=== PATIENT | male | born 1955 | race Caucasian/White ===

== ENCOUNTER 2017-12-25 05:45 | Inpatient (IN) ==
[2017-12-25] MEDS ORDERED: VANCOMYCIN INJ 1,000 MG in SODIUM CHLORIDE 0.9% 250 ML IV ONE (06:00)
[2017-12-25] MEDS ORDERED: ceFAZolin 1,000 MG in SYRINGE 1 EACH IV ONE (06:00)
[2017-12-25] MEDS ORDERED: DIAZEPAM 5 MG TABLET PO ONE (06:00)
[2017-12-25] MEDS ORDERED: ceFAZolin 1,000 MG VIAL ONE (06:00)
[2017-12-25] MEDS ORDERED: VANCOMYCIN 1,000 MG VIAL ONE (06:00)
[2017-12-25] MEDS ORDERED: FAMOTIDINE 20 MG TABLET PO ONE (06:00)
[2017-12-25] MEDS ORDERED: FAMOTIDINE 20 MG TABLET ONE (06:01)
[2017-12-25] MEDS ORDERED: DIAZEPAM 5 MG TABLET ONE (06:01)
[2017-12-25] MEDS ORDERED: BUPIVACAINE SPINAL 0.75% 2 ML AMP SPINAL ONE (06:07)
[2017-12-25] MEDS: LACTATED RINGERS 1,000 ML IV SCH (06:37)
[2017-12-25] MEDS ORDERED: NALOXONE 0.4 MG/ML VIAL IV PRN (07:16)
[2017-12-25] MEDS ORDERED: MORPHINE 4 MG/1 ML VIAL IV PRN (07:16)
[2017-12-25] MEDS ORDERED: diphenhydrAMINE CAP 25 MG CAPSULE PO PRN (07:16)
[2017-12-25] MEDS ORDERED: ONDANSETRON 4 MG/2 ML VIAL IV PRN ×2 (07:16→08:52)
[2017-12-25] MEDS ORDERED: BISACODYL 10 MG SUPP RECTAL PRN (07:16)
[2017-12-25] MEDS ORDERED: LACTULOSE 20 GM/30 ML UDCUP PO PRN (07:16)
[2017-12-25] MEDS ORDERED: MAGNESIUM HYDROXIDE SUSP 30 ML UDCUP PO PRN (07:16)
[2017-12-25] MEDS ORDERED: TEMAZEPAM 7.5 MG CAPSULE PO PRN (07:16)
[2017-12-25] MEDS ORDERED: PROMETHAZINE 25 MG/1 ML VIAL IM PRN (07:16)
[2017-12-25] MEDS ORDERED: TRANEXAMIC ACID 1,000 MG/10 ML VIAL ONE (07:50)
[2017-12-25] MEDS ORDERED: ROPIVACAINE 0.5% 30 ML VIAL ONE ×2 (08:42→09:31)
[2017-12-25] MEDS ORDERED: LIDOCAINE 2% 20 ML VIAL ONE (08:42)
[2017-12-25] MEDS ORDERED: PROPOFOL 200 MG/20 ML VIAL IV ONE (08:45)
[2017-12-25] MEDS ORDERED: LABETALOL 100 MG/20 ML VIAL IV ONE (08:46)
[2017-12-25] MEDS ORDERED: DESFLURANE 1 UNIT/15 MINUTE INH ONE (08:46)
[2017-12-25] MEDS ORDERED: GLYCOPYRROLATE 0.4 MG/2 ML VIAL ONE (08:46)
[2017-12-25] MEDS ORDERED: fentaNYL 100 MCG/2 ML VIAL ONE (08:46)
[2017-12-25] MEDS ORDERED: MIDAZOLAM 2 MG/2 ML VIAL ONE (08:46)
[2017-12-25] MEDS ORDERED: hydrALAZINE 20 MG/1 ML VIAL ONE (08:46)
[2017-12-25] MEDS ORDERED: ONDANSETRON 4 MG/2 ML VIAL ONE (08:47)
[2017-12-25] MEDS ORDERED: MORPHINE 10 MG/1 ML VIAL ONE (08:47)
[2017-12-25] MEDS ORDERED: NEOSTIGMINE 10 MG/10 ML VIAL ONE (08:47)
[2017-12-25] MEDS ORDERED: ACETAMINOPHEN 1,000 MG/100 ML VIAL IV ONE (08:47)
[2017-12-25] MEDS ORDERED: ROCURONIUM 100 MG/10 ML VIAL IV ONE (08:47)
[2017-12-25] MEDS: MORPHINE 10 MG/1 ML VIAL IV PRN ×5 (08:50→09:20)
[2017-12-25] MEDS ORDERED: ABATACEPT 125 MG SQ SCH (09:00)
[2017-12-25] MEDS ORDERED: GABAPENTIN 400 MG CAPSULE ONE (09:16)
[2017-12-25] MEDS ORDERED: KETOROLAC 30 MG/1 ML VIAL ONE (09:19)
[2017-12-25] MEDS ORDERED: KETOROLAC 30 MG/1 ML VIAL IV ONE (09:24)
[2017-12-25] MEDS ORDERED: GABAPENTIN 400 MG CAPSULE PO ONE (09:25)
[2017-12-25] MEDS: MORPHINE PCA 30 MG/30 ML SYRINGE IV SCH (09:54)
[2017-12-25] MEDS: ASPIRIN CHEW 81 MG TABLET PO SCH (11:33)
[2017-12-25] MEDS: PANTOPRAZOLE 40 MG TABLET PO SCH (11:33)
[2017-12-25] MEDS: DOCUSATE SODIUM 100 MG CAPSULE PO SCH ×2 (11:33→20:29)
[2017-12-25] MEDS: GABAPENTIN 600 MG TABLET PO SCH ×3 (11:33→20:30)
[2017-12-25] MEDS: CYCLOBENZAPRINE 10 MG TABLET PO SCH ×3 (11:34→20:30)
[2017-12-25] MEDS: PARoxetine 20 MG TABLET PO SCH (11:34)
[2017-12-25] MEDS: ROSUVASTATIN 20 MG TABLET PO SCH (11:34)
[2017-12-25] MEDS: ALLOPURINOL 300 MG TABLET PO SCH (11:34)
[2017-12-25] MEDS: ceFAZolin 2,000 MG in PREMIX 1 EACH IV SCH ×2 (16:46→22:00)
[2017-12-25] MEDS: FONDAPARINUX 2.5 MG/0.5 ML SYRINGE SUBCUT SCH (20:29)
[2017-12-25 22:41] LABS: Apearance,Urine CLEAR (Clear); Bilirubin,Urine Negative (Negative); Blood, Urine Negative (Negative); Glucose,Urine (UA) Negative (Negative); Ketones,Urine Negative (Negative); Mucus,Urine Occasional /LPF (Occasional); Nitrite,Urine Negative (Negative); Protein,Urine Negative; Urine Color Yellow (Yellow); Urine Specific Gravity 1.026 (1.001-1.035); Urine Urobilinogen < 2.0 EU/DL (0.2-1.0); WBC,Urine 1 /HPF (0-6)
[2017-12-26] MEDS: MORPHINE PCA 30 MG/30 ML SYRINGE IV SCH ×2 (05:44→13:48)
[2017-12-26 06:00] LABS: Basophils % 0.2 % (0.0-0.8); Eosinophils # 0.2 10*3/uL (0.0-0.87); Eosinophils % 2.4 % (0.00-10.9); Hematocrit 34.7 VOL% (42.0-52.0); Hemoglobin 11.8 GM/DL (14.0-18.0); Immature Granulocytes % 0.4 %; Immature Granulocytes Absolute 0.04 #; Lymphocytes # 1.9 10*3/uL (1.4-4.0); Lymphocytes % 18.2 % (21.2-54.2); Mean Corpuscular Hemoglobin 29 PG (27-34); Mean Corpuscular Volume 85.9 FL (87-102); Mean Platelet Volume 9.7 FL (9.6-12.0); Monocytes # 1.2 10*3/uL (0.11-0.8); Monocytes % 11.4 % (1.7-12.7); Neutrophils # 6.9 10*3/uL (1.4-7.4); Neutrophils % 67.4 % (38.7-73.9); Platelet Count 181 T/CUMM (130-400); Red Blood Count 4.04 MC/CUMM (3.8-5.5); Red Cell Distribution Width 14.5 % (9.3-17.3); White Blood Count 10.2 T/CUMM (4-12)
[2017-12-26 06:19] LABS: Calcium 7.8 MG/DL (8.5-10.1); Osmolality,Calculated 274.8 MOS/KG (273-304); Potassium 3.9 MMOL/L (3.5-5.1)
[2017-12-26] MEDS: LACTATED RINGERS 1,000 ML IV SCH ×2 (06:47→09:07)
[2017-12-26] MEDS: DOCUSATE SODIUM 100 MG CAPSULE PO SCH ×2 (08:48→21:48)
[2017-12-26] MEDS: ROSUVASTATIN 20 MG TABLET PO SCH (08:48)
[2017-12-26] MEDS: ASPIRIN CHEW 81 MG TABLET PO SCH (08:48)
[2017-12-26] MEDS: GABAPENTIN 600 MG TABLET PO SCH ×3 (08:49→21:48)
[2017-12-26] MEDS: CYCLOBENZAPRINE 10 MG TABLET PO SCH ×3 (08:49→21:48)
[2017-12-26] MEDS: PANTOPRAZOLE 40 MG TABLET PO SCH (08:49)
[2017-12-26] MEDS: PARoxetine 20 MG TABLET PO SCH (08:49)
[2017-12-26] MEDS: ALLOPURINOL 300 MG TABLET PO SCH (08:50)
[2017-12-26] MEDS ORDERED: ACETAMINOPHEN 325 MG TABLET PO PRN (17:54)
[2017-12-26] MEDS: FONDAPARINUX 2.5 MG/0.5 ML SYRINGE SUBCUT SCH (21:48)
[2017-12-27] MEDS: LACTATED RINGERS 1,000 ML IV SCH (06:30)
[2017-12-27] MEDS: MORPHINE PCA 30 MG/30 ML SYRINGE IV SCH (07:30)
[2017-12-27] MEDS: DOCUSATE SODIUM 100 MG CAPSULE PO SCH (10:04)
[2017-12-27] MEDS: CYCLOBENZAPRINE 10 MG TABLET PO SCH ×2 (10:04→14:30)
[2017-12-27] MEDS: ASPIRIN CHEW 81 MG TABLET PO SCH (10:04)
[2017-12-27] MEDS: GABAPENTIN 600 MG TABLET PO SCH ×2 (10:04→14:32)
[2017-12-27] MEDS: ROSUVASTATIN 20 MG TABLET PO SCH (10:04)
[2017-12-27] MEDS: PANTOPRAZOLE 40 MG TABLET PO SCH (10:05)
[2017-12-27] MEDS: ALLOPURINOL 300 MG TABLET PO SCH (10:05)
[2017-12-27] MEDS: PARoxetine 20 MG TABLET PO SCH (10:05)
[2017-12-27 11:11] VITALS: BP 164/91
== END 2017-12-27 14:42 | disposition home health service (06) | DRG 470 ==
LOC: N.OR 05:45 → N.SDSINP 06:13 → N.3E 10:24
PROVIDERS: ADMIT Orthopaedic Surgery; ATTEND Orthopaedic Surgery

== ENCOUNTER 2020-05-19 11:19 | Observation (INO) ==
[2020-05-19] MEDS ORDERED: HYDROmorphone 2 MG/1 ML VIAL IV STA (12:10)
[2020-05-19] MEDS ORDERED: ONDANSETRON 4 MG/2 ML VIAL IV STA (12:10)
[2020-05-19 12:44] LABS: Basophils % 0.3 % (0.0-0.8); Eosinophils # 0.3 10*3/uL (0.0-0.87); Eosinophils % 3.6 % (0.00-10.9); Hematocrit 37.5 VOL% (42.0-52.0); Hemoglobin 12.5 GM/DL (14.0-18.0); Immature Granulocytes % 0.6 %; Immature Granulocytes Absolute 0.05 #; Lymphocytes # 1.8 10*3/uL (1.4-4.0); Lymphocytes % 23.4 % (21.2-54.2); Mean Corpuscular HGB Conc 33.3 GM/DL (32-36); Mean Corpuscular Volume 85.4 FL (87-102); Mean Platelet Volume 9.3 FL (9.6-12.0); Monocytes % 10.5 % (1.7-12.7); Neutrophils % 61.6 % (38.7-73.9); Platelet Count 230 T/CUMM (130-400); Red Blood Count 4.39 MC/CUMM (3.8-5.5); Red Cell Distribution Width 14.4 % (9.3-17.3); White Blood Count 7.7 T/CUMM (4-12)
[2020-05-19 13:15] LABS: Albumin 3.1 G/DL (3.4-5.0); Bilirubin,Total 0.8 MG/DL (0.2-1.0); Calcium 8.9 MG/DL (8.5-10.1); Osmolality,Calculated 272.1 MOS/KG (273-304); Total Protein 7.2 G/DL (6.4-8.3)
[2020-05-19 13:43] LABS: Sedimentation Rate-Westergren 41 MM/HR (0-20)
[2020-05-19] MEDS ORDERED: KETOROLAC 30 MG/1 ML VIAL IV STA (15:40)
[2020-05-19] MEDS ORDERED: KETOROLAC 30 MG/1 ML VIAL ONE (15:48)
[2020-05-19] MEDS ORDERED: ACETAMINOPHEN 325 MG TABLET PO PRN (16:18)
[2020-05-19] MEDS ORDERED: ONDANSETRON 4 MG/2 ML VIAL IV PRN (16:18)
[2020-05-19] MEDS: DOCUSATE SODIUM 100 MG CAPSULE PO SCH (20:45)
[2020-05-19] MEDS: KETOROLAC 15 MG/1 ML VIAL IV SCH (21:26)
[2020-05-20] MEDS: KETOROLAC 15 MG/1 ML VIAL IV SCH ×2 (03:09→10:00)
[2020-05-20 06:35] LABS: Basophils % 0.3 % (0.0-0.8); Eosinophils # 0.3 10*3/uL (0.0-0.87); Eosinophils % 4.7 % (0.00-10.9); Hematocrit 37.8 VOL% (42.0-52.0); Hemoglobin 12.5 GM/DL (14.0-18.0); Immature Granulocytes % 0.4 %; Immature Granulocytes Absolute 0.03 #; Lymphocytes # 1.5 10*3/uL (1.4-4.0); Lymphocytes % 21.3 % (21.2-54.2); Mean Corpuscular HGB Conc 33.1 GM/DL (32-36); Mean Corpuscular Volume 85.7 FL (87-102); Mean Platelet Volume 9.1 FL (9.6-12.0); Monocytes % 12.4 % (1.7-12.7); Neutrophils % 60.9 % (38.7-73.9); Platelet Count 217 T/CUMM (130-400); Red Blood Count 4.41 MC/CUMM (3.8-5.5)
[2020-05-20 06:48] LABS: Calcium 9.2 MG/DL (8.5-10.1)
[2020-05-20] MEDS ORDERED: fentaNYL 50 MCG/HR PATCH TRANSDERM SCH (09:00)
[2020-05-20] MEDS ORDERED: PANTOPRAZOLE 40 MG TABLET PO SCH (09:00)
[2020-05-20] MEDS: DOCUSATE SODIUM 100 MG CAPSULE PO SCH ×2 (10:01→10:06)
[2020-05-20 11:33] VITALS: BP 122/59
== END 2020-05-20 14:20 | disposition home or self-care (01) ==
LOC: N.ED 11:19 → N.EDINP 11:19 → N.3E 16:15
PROVIDERS: ADMIT Family Medicine; ATTEND Family Medicine

== ENCOUNTER 2020-05-28 05:46 | Inpatient (IN) ==
[2020-05-26 15:54] LABS: Bilirubin,Urine Negative (Negative); Blood, Urine Negative (Negative); Glucose,Urine (UA) Negative (Negative); Hyaline Casts,Urine 34 /LPF (0-3); Ketones,Urine Negative (Negative); Mucus,Urine Many /LPF (Occasional); Nitrite,Urine Negative (Negative); Protein,Urine 30 MG/DL; RBC,Urine 1 /HPF (0-4); Urine Appearance CLEAR (Clear); Urine Color Amber (Yellow); Urine Specific Gravity 1.025 (1.001-1.035); WBC,Urine 1 /HPF (0-6)
[2020-05-26 16:03] LABS: PT Patient Result 10.3 SECS (9.8-11.9); Partial Thromboplastin Time 28.8 SECS (23.9-33.8)
[2020-05-28] MEDS ORDERED: propofoL 200 MG/20 ML VIAL IV ONE ×2 (06:22→07:43)
[2020-05-28] MEDS ORDERED: MIDAZOLAM 2 MG/2 ML VIAL ONE (06:22)
[2020-05-28] MEDS ORDERED: fentaNYL 100 MCG/2 ML VIAL ONE ×2 (06:22→07:47)
[2020-05-28] MEDS ORDERED: LIDOCAINE 2% 5 ML VIAL ONE (06:22)
[2020-05-28] MEDS ORDERED: VANCOMYCIN 1,000 MG VIAL ONE (06:29)
[2020-05-28] MEDS ORDERED: ceFAZolin 1,000 MG VIAL ONE (06:29)
[2020-05-28] MEDS ORDERED: ceFAZolin 1,000 MG in SYRINGE 1 EACH IV ONE (06:36)
[2020-05-28] MEDS ORDERED: VANCOMYCIN INJ 1,000 MG in SODIUM CHLORIDE 0.9% 250 ML IV ONE (06:36)
[2020-05-28] MEDS: LACTATED RINGERS 1,000 ML IV SCH ×2 (06:46→08:30)
[2020-05-28] MEDS ORDERED: BUPIVACAINE MPF 0.25% 30 ML VIAL ONE (06:50)
[2020-05-28] MEDS ORDERED: ROCURONIUM 50 MG/5 ML VIAL IV ONE (07:00)
[2020-05-28] MEDS ORDERED: SUCCINYLCHOLINE 200 MG/10 ML VIAL ONE (07:00)
[2020-05-28] MEDS ORDERED: LACTULOSE 20 GM/30 ML UDCUP PO PRN (07:18)
[2020-05-28] MEDS ORDERED: ONDANSETRON 4 MG/2 ML VIAL IV PRN ×2 (07:18→09:11)
[2020-05-28] MEDS ORDERED: diphenhydrAMINE CAP 25 MG CAPSULE PO PRN (07:18)
[2020-05-28] MEDS ORDERED: BISACODYL 10 MG SUPP RECTAL PRN (07:18)
[2020-05-28] MEDS ORDERED: PROMETHAZINE 25 MG/1 ML VIAL IM PRN (07:18)
[2020-05-28] MEDS ORDERED: TEMAZEPAM 7.5 MG CAPSULE PO PRN (07:18)
[2020-05-28] MEDS ORDERED: SODIUM CHLORIDE 0.9% 100 ML IV ONE (07:47)
[2020-05-28] MEDS ORDERED: TRANEXAMIC ACID 1,000 MG/10 ML VIAL ONE (07:47)
[2020-05-28] MEDS ORDERED: LABETALOL 20 MG/4 ML SYRINGE IV ONE (07:59)
[2020-05-28] MEDS ORDERED: ACETAMINOPHEN 1,000 MG/100 ML VIAL IV ONE (08:20)
[2020-05-28] MEDS ORDERED: hydrALAZINE 20 MG/1 ML VIAL ONE (08:22)
[2020-05-28] MEDS ORDERED: NEOSTIGMINE 10 MG/10 ML VIAL ONE (08:26)
[2020-05-28] MEDS ORDERED: GLYCOPYRROLATE 0.4 MG/2 ML VIAL ONE (08:26)
[2020-05-28] MEDS ORDERED: LACTATED RINGERS 1,000 ML IV ONE (08:26)
[2020-05-28] MEDS ORDERED: ONDANSETRON 4 MG/2 ML VIAL ONE (08:26)
[2020-05-28] MEDS ORDERED: SEVOFLURANE 1 UNIT/15 MINUTE INH ONE (08:53)
[2020-05-28] MEDS: HYDROmorphone 2 MG/1 ML VIAL IV PRN ×4 (09:10→09:25)
[2020-05-28] MEDS ORDERED: MEPERIDINE 25 MG/1 ML VIAL IV PRN (09:11)
[2020-05-28 09:12] LABS: Bilirubin,Urine Negative (Negative); Blood, Urine Negative (Negative); Glucose,Urine (UA) Negative (Negative); Hyaline Casts,Urine 1 /LPF (0-3); Ketones,Urine Negative (Negative); Mucus,Urine Few /LPF (Occasional); Nitrite,Urine Negative (Negative); Protein,Urine Negative; Urine Appearance CLEAR (Clear); Urine Color Yellow (Yellow); Urine Specific Gravity 1.016 (1.001-1.035); Urine Urobilinogen < 2.0 EU/DL (0.2-1.0); WBC,Urine <1 /HPF (0-6)
[2020-05-28] MEDS: MORPHINE 4 MG/1 ML VIAL IV PRN ×4 (12:13→22:09)
[2020-05-28] MEDS: ASPIRIN CHEW 81 MG TABLET PO SCH (13:01)
[2020-05-28] MEDS: PARoxetine 20 MG TABLET PO SCH (13:02)
[2020-05-28] MEDS: allopurinoL 300 MG TABLET PO SCH (13:02)
[2020-05-28] MEDS: PANTOPRAZOLE 40 MG TABLET PO SCH (13:09)
[2020-05-28] MEDS: amLODIPine 5 MG TABLET PO SCH (13:10)
[2020-05-28] MEDS: CYCLOBENZAPRINE 10 MG TABLET PO SCH (13:10)
[2020-05-28] MEDS: ROSUVASTATIN 20 MG TABLET PO SCH (13:10)
[2020-05-28] MEDS: OLMESARTAN 20 MG TABLET PO SCH (13:10)
[2020-05-28] MEDS: ceFAZolin 2,000 MG in PREMIX 1 EACH IV SCH ×2 (15:18→22:13)
[2020-05-28] MEDS: HYDROXYCHLOROQUINE 200 MG TABLET PO SCH (21:06)
[2020-05-28] MEDS: DOCUSATE SODIUM 100 MG CAPSULE PO SCH (21:06)
[2020-05-28] MEDS: FONDAPARINUX 2.5 MG/0.5 ML SYRINGE SUBCUT SCH (21:07)
[2020-05-29] MEDS: MORPHINE 4 MG/1 ML VIAL IV PRN ×2 (02:10→06:03)
[2020-05-29 06:42] LABS: Basophils % 0.4 % (0.0-0.8); Eosinophils # 0.1 10*3/uL (0.0-0.87); Eosinophils % 0.5 % (0.00-10.9); Hematocrit 36.1 VOL% (42.0-52.0); Immature Granulocytes % 0.4 %; Immature Granulocytes Absolute 0.04 #; Lymphocytes # 1.4 10*3/uL (1.4-4.0); Mean Corpuscular HGB Conc 33.2 GM/DL (32-36); Mean Corpuscular Volume 84.5 FL (87-102); Mean Platelet Volume 9.7 FL (9.6-12.0); Monocytes % 11.7 % (1.7-12.7); Platelet Count 294 T/CUMM (130-400); Red Blood Count 4.27 MC/CUMM (3.8-5.5); Red Cell Distribution Width 14.6 % (9.3-17.3); White Blood Count 11.1 T/CUMM (4-12)
[2020-05-29 06:46] LABS: Calcium 8.8 MG/DL (8.5-10.1); Osmolality,Calculated 277.7 MOS/KG (273-304)
[2020-05-29] MEDS: PANTOPRAZOLE 40 MG TABLET PO SCH (08:34)
[2020-05-29] MEDS: ASPIRIN CHEW 81 MG TABLET PO SCH (08:35)
[2020-05-29] MEDS: CYCLOBENZAPRINE 10 MG TABLET PO SCH (08:35)
[2020-05-29] MEDS: ROSUVASTATIN 20 MG TABLET PO SCH (08:35)
[2020-05-29] MEDS: amLODIPine 5 MG TABLET PO SCH (08:35)
[2020-05-29] MEDS: PARoxetine 20 MG TABLET PO SCH (08:35)
[2020-05-29] MEDS: OLMESARTAN 20 MG TABLET PO SCH (08:35)
[2020-05-29] MEDS: DOCUSATE SODIUM 100 MG CAPSULE PO SCH ×2 (08:36→20:57)
[2020-05-29] MEDS: allopurinoL 300 MG TABLET PO SCH (08:38)
[2020-05-29] MEDS: HYDROXYCHLOROQUINE 200 MG TABLET PO SCH ×2 (09:21→20:57)
[2020-05-29] MEDS: FONDAPARINUX 2.5 MG/0.5 ML SYRINGE SUBCUT SCH (20:57)
[2020-05-30 05:54] LABS: Basophils # 0.1 10*3/uL (0.0-0.2); Basophils % 0.5 % (0.0-0.8); Eosinophils # 0.3 10*3/uL (0.0-0.87); Eosinophils % 2.4 % (0.00-10.9); Hematocrit 34.5 VOL% (42.0-52.0); Hemoglobin 11.2 GM/DL (14.0-18.0); Immature Granulocytes % 0.4 %; Immature Granulocytes Absolute 0.04 #; Lymphocytes # 1.7 10*3/uL (1.4-4.0); Lymphocytes % 15.2 % (21.2-54.2); Mean Corpuscular HGB Conc 32.5 GM/DL (32-36); Mean Corpuscular Volume 87.1 FL (87-102); Monocytes % 13.7 % (1.7-12.7); Neutrophils % 67.8 % (38.7-73.9); Platelet Count 267 T/CUMM (130-400); Red Blood Count 3.96 MC/CUMM (3.8-5.5); Red Cell Distribution Width 14.7 % (9.3-17.3); White Blood Count 11.3 T/CUMM (4-12)
[2020-05-30 05:58] LABS: Calcium 8.5 MG/DL (8.5-10.1); Osmolality,Calculated 276.8 MOS/KG (273-304)
[2020-05-30] MEDS: PANTOPRAZOLE 40 MG TABLET PO SCH (08:56)
[2020-05-30] MEDS: MAGNESIUM HYDROXIDE SUSP 30 ML UDCUP PO PRN (08:56)
[2020-05-30] MEDS: ROSUVASTATIN 20 MG TABLET PO SCH (08:57)
[2020-05-30] MEDS: PARoxetine 20 MG TABLET PO SCH (08:57)
[2020-05-30] MEDS: HYDROXYCHLOROQUINE 200 MG TABLET PO SCH ×2 (08:57→20:37)
[2020-05-30] MEDS: CYCLOBENZAPRINE 10 MG TABLET PO SCH (08:57)
[2020-05-30] MEDS: ASPIRIN CHEW 81 MG TABLET PO SCH (08:57)
[2020-05-30] MEDS: DOCUSATE SODIUM 100 MG CAPSULE PO SCH ×2 (08:57→20:36)
[2020-05-30] MEDS: allopurinoL 300 MG TABLET PO SCH (08:57)
[2020-05-30] MEDS: OLMESARTAN 20 MG TABLET PO SCH (10:00)
[2020-05-30] MEDS: amLODIPine 5 MG TABLET PO SCH (10:00)
[2020-05-30] MEDS: FONDAPARINUX 2.5 MG/0.5 ML SYRINGE SUBCUT SCH (20:36)
[2020-05-31] MEDS: PANTOPRAZOLE 40 MG TABLET PO SCH (08:55)
[2020-05-31] MEDS: HYDROXYCHLOROQUINE 200 MG TABLET PO SCH ×2 (08:55→20:41)
[2020-05-31] MEDS: DOCUSATE SODIUM 100 MG CAPSULE PO SCH ×2 (08:55→20:40)
[2020-05-31] MEDS: CYCLOBENZAPRINE 10 MG TABLET PO SCH (08:55)
[2020-05-31] MEDS: ROSUVASTATIN 20 MG TABLET PO SCH (08:55)
[2020-05-31] MEDS: ASPIRIN CHEW 81 MG TABLET PO SCH (08:55)
[2020-05-31] MEDS: allopurinoL 300 MG TABLET PO SCH (08:56)
[2020-05-31] MEDS: PARoxetine 20 MG TABLET PO SCH (08:56)
[2020-05-31] MEDS: MAGNESIUM HYDROXIDE SUSP 30 ML UDCUP PO PRN (08:56)
[2020-05-31] MEDS: amLODIPine 5 MG TABLET PO SCH (08:57)
[2020-05-31] MEDS: OLMESARTAN 20 MG TABLET PO SCH (08:57)
[2020-05-31] MEDS: FONDAPARINUX 2.5 MG/0.5 ML SYRINGE SUBCUT SCH (20:44)
[2020-06-01] MEDS: MAGNESIUM HYDROXIDE SUSP 30 ML UDCUP PO PRN (02:53)
[2020-06-01] MEDS: allopurinoL 300 MG TABLET PO SCH (09:31)
[2020-06-01] MEDS: CYCLOBENZAPRINE 10 MG TABLET PO SCH (09:31)
[2020-06-01] MEDS: HYDROXYCHLOROQUINE 200 MG TABLET PO SCH (09:31)
[2020-06-01] MEDS: amLODIPine 5 MG TABLET PO SCH (09:32)
[2020-06-01] MEDS: OLMESARTAN 20 MG TABLET PO SCH (09:32)
[2020-06-01] MEDS: PANTOPRAZOLE 40 MG TABLET PO SCH (09:32)
[2020-06-01] MEDS: ROSUVASTATIN 20 MG TABLET PO SCH (09:32)
[2020-06-01] MEDS: PARoxetine 20 MG TABLET PO SCH (09:33)
[2020-06-01] MEDS: DOCUSATE SODIUM 100 MG CAPSULE PO SCH (09:33)
[2020-06-01] MEDS: ASPIRIN CHEW 81 MG TABLET PO SCH (09:33)
[2020-06-01 11:09] VITALS: BP 132/75
== END 2020-06-01 11:29 | disposition swing bed (61) | DRG 470 ==
LOC: N.OR 05:46 → N.SDSINP 05:48 → EDSTATUS 07:30 → N.3E 10:47
PROVIDERS: ADMIT Orthopaedic Surgery; ATTEND Orthopaedic Surgery